=== PATIENT | female | born 1960 | race Caucasian/White ===

== ENCOUNTER 2020-07-18 06:23 | Inpatient (IN) ==
[~2020-07-18 06:23] MED LIST: Hydrocortisone Sodium Succ 100 MG/2 ML VIAL IVP ONE; Ringers Solution, Lactated 1,000 ML IVC SCH
[2020-07-18] MEDS ORDERED: *HR* Propofol 200 MG/20 ML VIAL IVP ONE ×2 (06:38→12:57)
[2020-07-18] MEDS ORDERED: *HR* FentaNYL (PF) 100 MCG/2 ML VIAL ONE ×3 (06:38→14:04)
[2020-07-18] MEDS ORDERED: *HR* Midazolam HCl 2 MG/2 ML VIAL ONE ×2 (06:38→13:14)
[2020-07-18] MEDS ORDERED: *HR* Remifentanil 1 MG VIAL IVP ONE ×2 (06:38)
[2020-07-18] MEDS ORDERED: CeFAZolin Syr 2,000MG/20 ML 2,000 MG/20 ML SYRINGE IVPB ONE (06:44)
[2020-07-18] MEDS ORDERED: Ondansetron 4 MG/2 ML VIAL ONE (06:52)
[2020-07-18] MEDS ORDERED: Dexamethasone 4 MG/ML VIAL ONE (06:52)
[2020-07-18] MEDS ORDERED: Lidocaine -MPF 2% 2 ML VIAL ONE (06:52)
[2020-07-18] MEDS ORDERED: *HR* Succinylcholine 200 MG/10 ML VIAL IVP ONE (06:52)
[2020-07-18] MEDS ORDERED: *HR* Rocuronium Bromide 50 MG/5 ML VIAL ONE (06:58)
[2020-07-18] MEDS ORDERED: *HR* Phenylephrine 10 MG/ML VIAL ONE (07:05)
[2020-07-18] MEDS ORDERED: Bacitracin 50,000 UNIT, Polymyxin B Sulfate 500,000 UNIT, Sodium Chloride IRRigation 1,... IR ONE (07:45)
[2020-07-18] MEDS ORDERED: *HR* HYDROcodone/Acet 5/325 mg TABLET PO PRN (08:00)
[2020-07-18] MEDS ORDERED: Ondansetron 4 MG/2 ML VIAL IVP PRN ×2 (08:00→14:14)
[2020-07-18] MEDS ORDERED: Acetaminophen IV 1,000 MG/100 ML BAG IVPB PRN (08:00)
[2020-07-18 08:42] LABS: Basophils % 0.5 %; Eosinophils # 0.2 K/mcL (0.0-0.6); Eosinophils % 3.1 %; Hematocrit 36.5 % (35.3-44.9); Hemoglobin 12.3 g/dL (11.5-15.4); Immature Granulocytes % 0.1 % (0-4); Lymphocytes # 3.6 K/mcL (0.6-4.6); Lymphocytes % 49.1 %; Mean Corpuscular HGB Conc 33.7 g/dL (31.6-35.5); Mean Corpuscular Hemoglobin 30.8 pg (28.0-33.3); Mean Corpuscular Volume 91.5 fL (83.0-100.0); Mean Platelet Volume 9.2 fL (9.4-12.4); Monocytes # 0.6 K/mcL (0.0-1.3); Monocytes % 7.9 %; Neutrophils # 2.9 K/mcL (1.6-8.9); Platelet Count 184 K/mcL (140-400); Red Blood Count 3.99 M/mcL (3.82-4.97); Red Cell Distribution Width 12.8 % (11.5-14.5); Segmented Neutrophils % 39.3 %; White Blood Count 7.4 K/mcL (4.3-11.1)
[2020-07-18] MEDS ORDERED: *HR* PHENYLEPHRINE 1,000 MCG/10 ML SYRINGE IVP ONE (08:52)
[2020-07-18] MEDS ORDERED: Sugammadex Sodium 200 MG/2 ML VIAL IV ONE (10:11)
[2020-07-18] MEDS: *HR* HYDROmorphone (PF) 1 MG/ML SYRINGE IVP PRN ×6 (12:38→13:04)
[2020-07-18] MEDS ORDERED: *HR* Midazolam HCl 2 MG/2 ML VIAL IVP ONE (13:17)
[2020-07-18] MEDS ORDERED: Naloxone 0.4 MG/ML INJ IVP PRN (14:14)
[2020-07-18] MEDS: *HR* OxyCODONE Immed Rel 5 MG TABLET PO PRN ×2 (14:23→20:24)
[2020-07-18] MEDS: CeFAZolin 2 GM/120 ML BAG IVPB SCH ×2 (17:03→23:34)
[2020-07-19] MEDS: *HR* OxyCODONE Immed Rel 5 MG TABLET PO PRN ×6 (01:49→23:01)
[2020-07-19] MEDS: BuPROPion XL (24 HR) 150 MG TABLET PO SCH (08:22)
[2020-07-19] MEDS: lisinopriL 10 MG TABLET PO SCH (08:22)
[2020-07-19] MEDS: Gabapentin 300 MG CAPSULE PO SCH ×2 (12:22→20:43)
[2020-07-19] MEDS: diazePAM 2 MG TABLET PO PRN ×2 (12:24→23:01)
[2020-07-19 13:06] LABS: Basophils % 0.2 %; Eosinophils % 0.2 %; Immature Granulocytes % 0.4 % (0-4); Lymphocytes # 2.3 K/mcL (0.6-4.6); Lymphocytes % 22.3 %; Mean Corpuscular HGB Conc 33.2 g/dL (31.6-35.5); Mean Corpuscular Hemoglobin 31.4 pg (28.0-33.3); Mean Corpuscular Volume 94.5 fL (83.0-100.0); Mean Platelet Volume 9.6 fL (9.4-12.4); Monocytes % 9.7 %; Platelet Count 173 K/mcL (140-400); Red Blood Count 3.28 M/mcL (3.82-4.97); Red Cell Distribution Width 12.7 % (11.5-14.5); Segmented Neutrophils % 67.2 %; White Blood Count 10.4 K/mcL (4.3-11.1)
[2020-07-19 13:07] LABS: Hemoglobin 10.3 g/dL (11.5-15.4)
[2020-07-19] MEDS ORDERED: Acetaminophen IV 1,000 MG/100 ML BAG IVPB ONE (13:16)
[2020-07-19 13:24] LABS: BUN/Creatinine Ratio 15 (6-26); Blood Urea Nitrogen 11 mg/dL (6-20); Calcium 8.8 mg/dL (8.6-10.3); Carbon Dioxide 29 mEq/L (23-29); Chloride 103 mEq/L (98-107); Glucose 136 mg/dL (70-105); Osmolality,Calculated 285 (280-300); Potassium 3.6 mEq/L (3.5-5.1); Sodium 137 mEq/L (136-145); eGFR For African Americans > 60 (> 60); eGFR For Non-African Americans > 60 (> 60)
[2020-07-19] MEDS: Acetaminophen 325 MG TABLET PO PRN (18:32)
[2020-07-19] MEDS: *HR* HYDROcodone/Acet 5/325 mg TABLET PO PRN (20:42)
[2020-07-19 21:25] LABS: Bilirubin,Urine Negative (Negative); Blood,Urine Negative (Negative); Clarity,Urine Clear (Clear); Color,Urine Light-Yellow (Yellow); Glucose,Urine (UA) Normal (Normal); Ketones,Urine Negative (Negative); Leukocyte Esterase,Urine Moderate (Negative); Nitrite,Urine Negative (Negative); PH,Urine 6.5 pH Units (5.0-8.0); Protein,Urine Negative (Neg-Trace); RBC,Urine 0-3 per hpf (0-3); Specific Gravity,Urine 1.015 (1.010-1.025); Squamous Epithelial Cell,Urine Few per hpf (None-Few); Urobilinogen,Urine Normal (Normal)
[2020-07-19] MEDS: Sulfamethoxazole/Trimeth DS 1 EACH TABLET PO SCH (23:58)
[2020-07-20] MEDS: Acetaminophen 325 MG TABLET PO PRN ×3 (00:53→20:43)
[2020-07-20] MEDS: *HR* OxyCODONE Immed Rel 5 MG TABLET PO PRN ×5 (03:04→23:12)
[2020-07-20] MEDS: *HR* HYDROcodone/Acet 5/325 mg TABLET PO PRN ×3 (05:15→18:52)
[2020-07-20] MEDS: Ringers Solution, Lactated 1,000 ML IVC SCH (05:16)
[2020-07-20] MEDS: diazePAM 2 MG TABLET PO PRN (08:07)
[2020-07-20] MEDS: BuPROPion XL (24 HR) 150 MG TABLET PO SCH (08:27)
[2020-07-20] MEDS: lisinopriL 10 MG TABLET PO SCH (08:27)
[2020-07-20] MEDS: Sulfamethoxazole/Trimeth DS 1 EACH TABLET PO SCH ×2 (08:27→20:43)
[2020-07-20] MEDS: Gabapentin 300 MG CAPSULE PO SCH ×3 (08:27→20:43)
[2020-07-20] MEDS ORDERED: NON-FORMULARY MEDICATION 1 EACH EACH (Omeprazole Magnesium [Prilosec Otc] 20 MG Tablet.Dr) PO SCH (09:00)
[2020-07-20 10:38] LABS: Basophils % 0.3 %; Eosinophils % 0.2 %; Hematocrit 30.2 % (35.3-44.9); Hemoglobin 9.9 g/dL (11.5-15.4); Immature Granulocytes % 0.5 % (0-4); Lymphocytes # 2.1 K/mcL (0.6-4.6); Lymphocytes % 17.2 %; Mean Corpuscular HGB Conc 32.8 g/dL (31.6-35.5); Mean Corpuscular Hemoglobin 31.4 pg (28.0-33.3); Mean Corpuscular Volume 95.9 fL (83.0-100.0); Mean Platelet Volume 9.7 fL (9.4-12.4); Monocytes # 1.4 K/mcL (0.0-1.3); Monocytes % 11.1 %; Neutrophils # 8.6 K/mcL (1.6-8.9); Platelet Count 160 K/mcL (140-400); Red Blood Count 3.15 M/mcL (3.82-4.97); Segmented Neutrophils % 70.7 %; White Blood Count 12.2 K/mcL (4.3-11.1)
[2020-07-20 10:57] LABS: BUN/Creatinine Ratio 11 (6-26); Blood Urea Nitrogen 8 mg/dL (6-20); Carbon Dioxide 30 mEq/L (23-29); Chloride 102 mEq/L (98-107); Glucose 121 mg/dL (70-105); Osmolality,Calculated 280 (280-300); Potassium 3.9 mEq/L (3.5-5.1); Sodium 135 mEq/L (136-145); eGFR For African Americans > 60 (> 60); eGFR For Non-African Americans > 60 (> 60)
[2020-07-20] MEDS: diazePAM 10 MG TABLET PO PRN ×2 (11:43→20:43)
[2020-07-20] MEDS ORDERED: HYDROcodone BIT/Homatropine 5 MG TABLET PO PRN (23:28)
[2020-07-20] MEDS ORDERED: tiZANidine 4 MG TABLET PO PRN (23:29)
[2020-07-20] MEDS ORDERED: Acetaminophen IV 1,000 MG/100 ML BAG IVPB SCH (23:30)
[2020-07-20] MEDS: hydrOXYzine pamoate 25 MG CAPSULE PO SCH (23:35)
[2020-07-21] MEDS: *HR* OxyCODONE Immed Rel 5 MG TABLET PO PRN ×3 (04:12→13:55)
[2020-07-21] MEDS: diazePAM 10 MG TABLET PO PRN ×2 (04:42→13:55)
[2020-07-21] MEDS: Acetaminophen IV 1,000 MG/100 ML BAG IVPB SCH ×3 (04:43→21:04)
[2020-07-21 05:42] LABS: Basophils % 0.3 %; Eosinophils # 0.2 K/mcL (0.0-0.6); Hemoglobin 9.8 g/dL (11.5-15.4); Immature Granulocytes % 0.3 % (0-4); Lymphocytes # 1.7 K/mcL (0.6-4.6); Lymphocytes % 16.6 %; Mean Corpuscular HGB Conc 32.7 g/dL (31.6-35.5); Mean Corpuscular Hemoglobin 31.3 pg (28.0-33.3); Mean Corpuscular Volume 95.8 fL (83.0-100.0); Mean Platelet Volume 9.6 fL (9.4-12.4); Monocytes # 0.9 K/mcL (0.0-1.3); Monocytes % 8.3 %; Neutrophils # 7.5 K/mcL (1.6-8.9); Platelet Count 171 K/mcL (140-400); Red Blood Count 3.13 M/mcL (3.82-4.97); Red Cell Distribution Width 12.7 % (11.5-14.5); Segmented Neutrophils % 72.5 %; White Blood Count 10.4 K/mcL (4.3-11.1)
[2020-07-21 06:00] LABS: BUN/Creatinine Ratio 12 (6-26); Blood Urea Nitrogen 9 mg/dL (6-20); Carbon Dioxide 26 mEq/L (23-29); Chloride 102 mEq/L (98-107); Glucose 135 mg/dL (70-105); Osmolality,Calculated 279 (280-300); Potassium 3.9 mEq/L (3.5-5.1); Sodium 134 mEq/L (136-145); eGFR For African Americans > 60 (> 60); eGFR For Non-African Americans > 60 (> 60)
[2020-07-21] MEDS: hydrOXYzine pamoate 25 MG CAPSULE PO SCH ×2 (09:00→22:29)
[2020-07-21] MEDS: tiZANidine 4 MG TABLET PO SCH ×4 (09:00→22:29)
[2020-07-21] MEDS: lisinopriL 10 MG TABLET PO SCH (09:00)
[2020-07-21] MEDS: Gabapentin 300 MG CAPSULE PO SCH ×3 (09:00→21:05)
[2020-07-21] MEDS: BuPROPion XL (24 HR) 150 MG TABLET PO SCH (09:01)
[2020-07-21] MEDS: Sulfamethoxazole/Trimeth DS 1 EACH TABLET PO SCH (09:04)
[2020-07-21] MEDS: Ringers Solution, Lactated 1,000 ML IVC SCH ×2 (15:44→23:31)
[2020-07-21] MEDS ORDERED: *HR* OxyCODONE Immed Rel 5 MG TABLET PO PRN (15:51)
[2020-07-21] MEDS: diazePAM 5 MG TABLET PO SCH ×2 (16:38→22:29)
[2020-07-21] MEDS ORDERED: Vancomycin (wt based) 1,000 MG VIAL IVPB SCH (18:00)
[2020-07-21 18:34] LABS: Basophils % 0.3 %; Eosinophils # 0.4 K/mcL (0.0-0.6); Eosinophils % 3.5 %; Hematocrit 29.5 % (35.3-44.9); Hemoglobin 9.5 g/dL (11.5-15.4); Immature Granulocytes % 0.5 % (0-4); Lymphocytes # 3.2 K/mcL (0.6-4.6); Lymphocytes % 26.4 %; Mean Corpuscular HGB Conc 32.2 g/dL (31.6-35.5); Mean Corpuscular Hemoglobin 31.5 pg (28.0-33.3); Mean Corpuscular Volume 97.7 fL (83.0-100.0); Mean Platelet Volume 9.6 fL (9.4-12.4); Neutrophils # 7.5 K/mcL (1.6-8.9); Platelet Count 215 K/mcL (140-400); Red Blood Count 3.02 M/mcL (3.82-4.97); Red Cell Distribution Width 12.9 % (11.5-14.5); Segmented Neutrophils % 61.3 %; White Blood Count 12.3 K/mcL (4.3-11.1)
[2020-07-21 18:53] LABS: Albumin 3.9 g/dL (3.5-5.7); Albumin/Globulin Ratio 1.1 (1.1-2.2); Bilirubin,Total 0.8 mg/dL (0.3-1.0); Calcium 9.2 mg/dL (8.6-10.3); Globulin 3.5 g/dL (2.4-3.5); Magnesium 2.1 mg/dL (1.6-2.6); Total Protein 7.4 g/dL (6.4-8.9)
[2020-07-21] MEDS ORDERED: Vancomycin 1,500 MG/265 ML IV.SOLN IVPB SCH (19:00)
[2020-07-21] MEDS: Cefepime HCl 2,000 MG in Water for inj. (sterile) 20 ML IVP SCH (19:51)
[2020-07-21] MEDS: 0.9 % Sodium Chloride 1,000 ML IVC SCH ×3 (20:00→22:18)
[2020-07-21 20:27] LABS: Adenovirus Not Detected (Not Detect); Bordetella Pertussis Not Detected (Not Detect); Chlamydophila pneumoniae Not Detected (Not Detect); Coronavirus 229E Not Detected (Not Detect); Coronavirus HKU1 Not Detected (Not Detect); Coronavirus NL63 Not Detected (Not Detect); Coronavirus OC43 Not Detected (Not Detect); Human Metapneumovirus Not Detected (Not Detect); Human Rhinovirus/Enterovirus Not Detected (Not Detect); Influenza A Subtype 2009 H1 Not Detected (Not Detect); Influenza B Not Detected (Not Detect); Mycoplasma pneumoniae Not Detected (Not Detect); Parainfluenza Virus 1 Not Detected (Not Detect); Parainfluenza Virus 2 Not Detected (Not Detect); Parainfluenza Virus 3 Not Detected (Not Detect); Parainfluenza Virus 4 Not Detected (Not Detect); Respiratory Syncytial Virus Not Detected (Not Detect); SARS-CoV-2 Not Detected (Not Detect)
[2020-07-21 23:47] LABS: Bilirubin,Urine Negative (Negative); Blood,Urine Negative (Negative); Clarity,Urine Clear (Clear); Color,Urine Light-Yellow (Yellow); Glucose,Urine (UA) Normal (Normal); Ketones,Urine Negative (Negative); Leukocyte Esterase,Urine Negative (Negative); Nitrite,Urine Negative (Negative); PH,Urine 6.5 pH Units (5.0-8.0); Protein,Urine Trace mg/dL (Neg-Trace); Specific Gravity,Urine 1.012 (1.010-1.025); Urobilinogen,Urine Normal (Normal)
[2020-07-22] MEDS: Cefepime HCl 2,000 MG in Water for inj. (sterile) 20 ML IVP SCH ×2 (02:00→10:16)
[2020-07-22] MEDS: Gabapentin 300 MG CAPSULE PO SCH ×3 (08:14→20:35)
[2020-07-22] MEDS: BuPROPion XL (24 HR) 150 MG TABLET PO SCH (08:14)
[2020-07-22] MEDS: *HR* OxyCODONE Immed Rel 5 MG TABLET PO PRN ×3 (08:15→19:24)
[2020-07-22] MEDS: lisinopriL 10 MG TABLET PO SCH (08:22)
[2020-07-22 09:42] LABS: Basophils % 0.3 %; Eosinophils # 0.4 K/mcL (0.0-0.6); Hematocrit 25.8 % (35.3-44.9); Hemoglobin 8.7 g/dL (11.5-15.4); Immature Granulocytes % 0.4 % (0-4); Lymphocytes # 1.7 K/mcL (0.6-4.6); Lymphocytes % 23.9 %; Mean Corpuscular HGB Conc 33.7 g/dL (31.6-35.5); Mean Corpuscular Hemoglobin 32.5 pg (28.0-33.3); Mean Corpuscular Volume 96.3 fL (83.0-100.0); Mean Platelet Volume 9.5 fL (9.4-12.4); Monocytes # 0.6 K/mcL (0.0-1.3); Monocytes % 9.1 %; Neutrophils # 4.3 K/mcL (1.6-8.9); Platelet Count 161 K/mcL (140-400); Red Blood Count 2.68 M/mcL (3.82-4.97); Red Cell Distribution Width 12.7 % (11.5-14.5); Segmented Neutrophils % 61.3 %
[2020-07-22 09:58] LABS: BUN/Creatinine Ratio 14 (6-26); Blood Urea Nitrogen 14 mg/dL (6-20); Calcium 8.2 mg/dL (8.6-10.3); Carbon Dioxide 22 mEq/L (23-29); Chloride 107 mEq/L (98-107); Glucose 136 mg/dL (70-105); Osmolality,Calculated 285 (280-300); Sodium 136 mEq/L (136-145); eGFR For African Americans > 60 (> 60); eGFR For Non-African Americans 55 (> 60)
[2020-07-22] MEDS: diazePAM 5 MG TABLET PO SCH ×2 (10:16→14:08)
[2020-07-22] MEDS: Ringers Solution, Lactated 1,000 ML IVC SCH ×2 (10:20→20:35)
[2020-07-22] MEDS: Acetaminophen IV 1,000 MG/100 ML BAG IVPB PRN ×2 (10:31→21:46)
[2020-07-22] MEDS: tiZANidine 4 MG TABLET PO SCH ×2 (11:25→13:24)
[2020-07-22] MEDS: Vancomycin 1,250 MG/262.5 ML IV.SOLN IVPB SCH (13:19)
[2020-07-22] MEDS ORDERED: tiZANidine 4 MG TABLET PO PRN (16:10)
[2020-07-22] MEDS: Piperacillin/Tazobactam 3.375 GM in 0.9 % Sodium Chloride Mini Bag 100 ML IVPB SCH (16:24)
[2020-07-22] MEDS: diazePAM 10 MG TABLET PO SCH ×2 (18:17→20:35)
[2020-07-23] MEDS: Vancomycin 1,250 MG/262.5 ML IV.SOLN IVPB SCH ×2 (00:26→12:21)
[2020-07-23] MEDS: Piperacillin/Tazobactam 3.375 GM in 0.9 % Sodium Chloride Mini Bag 100 ML IVPB SCH ×3 (00:26→15:14)
[2020-07-23] MEDS: *HR* OxyCODONE Immed Rel 5 MG TABLET PO PRN ×4 (02:21→21:24)
[2020-07-23] MEDS: BuPROPion XL (24 HR) 150 MG TABLET PO SCH (08:04)
[2020-07-23] MEDS: lisinopriL 10 MG TABLET PO SCH (08:04)
[2020-07-23] MEDS: Gabapentin 300 MG CAPSULE PO SCH ×3 (08:04→21:19)
[2020-07-23] MEDS: diazePAM 10 MG TABLET PO SCH ×3 (08:04→21:52)
[2020-07-23] MEDS: tiZANidine 4 MG TABLET PO PRN ×2 (09:05→22:00)
[2020-07-23 09:27] LABS: Hematocrit 27.8 % (35.3-44.9); Hemoglobin 8.9 g/dL (11.5-15.4); Mean Corpuscular Hemoglobin 30.7 pg (28.0-33.3); Mean Corpuscular Volume 95.9 fL (83.0-100.0); Platelet Count 198 K/mcL (140-400); Red Cell Distribution Width 12.4 % (11.5-14.5); White Blood Count 5.7 K/mcL (4.3-11.1)
[2020-07-23 09:46] LABS: BUN/Creatinine Ratio 13 (6-26); Blood Urea Nitrogen 10 mg/dL (6-20); Calcium 8.8 mg/dL (8.6-10.3); Carbon Dioxide 25 mEq/L (23-29); Chloride 105 mEq/L (98-107); Glucose 107 mg/dL (70-105); Osmolality,Calculated 286 (280-300); Potassium 4.2 mEq/L (3.5-5.1); Sodium 138 mEq/L (136-145); eGFR For African Americans > 60 (> 60); eGFR For Non-African Americans > 60 (> 60)
[2020-07-23] MEDS: Acetaminophen IV 1,000 MG/100 ML BAG IVPB PRN (11:28)
[2020-07-24] MEDS: Piperacillin/Tazobactam 3.375 GM in 0.9 % Sodium Chloride Mini Bag 100 ML IVPB SCH ×2 (00:03→08:45)
[2020-07-24 00:31] LABS: Hematocrit 24.7 % (35.3-44.9); Hemoglobin 8.2 g/dL (11.5-15.4); Mean Corpuscular HGB Conc 33.2 g/dL (31.6-35.5); Mean Corpuscular Hemoglobin 31.2 pg (28.0-33.3); Mean Corpuscular Volume 93.9 fL (83.0-100.0); Mean Platelet Volume 9.2 fL (9.4-12.4); Platelet Count 190 K/mcL (140-400); Red Blood Count 2.63 M/mcL (3.82-4.97); Red Cell Distribution Width 12.3 % (11.5-14.5); White Blood Count 5.8 K/mcL (4.3-11.1)
[2020-07-24 00:47] LABS: BUN/Creatinine Ratio 14 (6-26); Blood Urea Nitrogen 10 mg/dL (6-20); Calcium 8.9 mg/dL (8.6-10.3); Carbon Dioxide 24 mEq/L (23-29); Chloride 105 mEq/L (98-107); Glucose 102 mg/dL (70-105); Osmolality,Calculated 283 (280-300); Sodium 137 mEq/L (136-145); eGFR For African Americans > 60 (> 60); eGFR For Non-African Americans > 60 (> 60)
[2020-07-24] MEDS: Vancomycin 1,250 MG/262.5 ML IV.SOLN IVPB SCH (01:16)
[2020-07-24] MEDS: *HR* OxyCODONE Immed Rel 5 MG TABLET PO PRN ×2 (06:24→10:39)
[2020-07-24] MEDS: tiZANidine 4 MG TABLET PO PRN (08:42)
[2020-07-24] MEDS: lisinopriL 10 MG TABLET PO SCH (08:42)
[2020-07-24] MEDS: BuPROPion XL (24 HR) 150 MG TABLET PO SCH (08:42)
[2020-07-24] MEDS: Gabapentin 300 MG CAPSULE PO SCH (08:45)
[2020-07-24] MEDS: diazePAM 10 MG TABLET PO SCH (08:45)
[2020-07-24 10:51] VITALS: BP 116/74
== END 2020-07-24 14:44 | disposition home or self-care (01) | DRG 453 ==
LOC: SAMDAY 06:23 → 3NENU 06:23 → SUATTDRO 07-19 15:58
PROVIDERS: ADMIT Orthopaedic Surgery Orthopaedic Surgery of the Spine; ATTEND Internal Medicine